=== PATIENT | male | born 1995 | race Caucasian/White ===

== ENCOUNTER 2017-08-05 13:17 | Emergency (ER) | payer BC ==
[2017-08-05 13:27] VITALS: BP 159/78; PULSE 51; RESP 16; TEMP 98.2; O2SAT 100
--- NOTE | 2017-08-05 13:40 | EDPHY ---
HPI/HX/ROS/PE/MDM Narrative: CHIEF COMPLAINT: Low back pain HPI: The patient is a 22-year-old male with history of known L4-L5 herniated disc and sciatica secondary to wrestling injury a few years ago. The patient states that earlier this week he had a coughing fit which caused acute onset of recurrence of pain in the right lower back with radiation down his right leg. He states this feels exactly the same as his prior sciatica. He denies fever, abdominal pain, numbness, incontinence, difficulty walking. He states he was seen at urgent care earlier this year for similar symptoms and received oral steroids and muscle relaxant which helped greatly. REVIEW OF SYSTEMS: Aside from elements discussed in the HPI, a comprehensive 10-point review of systems was reviewed and is negative. PMH: Includes herniated disc, no history of back surgery. SOCIAL HISTORY: Single. Student. PHYSICAL EXAM: General:Patient is alert, in no acute distress. Abdomen:The abdomen is nontender to palpation. There are no peritoneal signs. There are normal bowel sounds. Back: Normal to inspection. Mild tenderness to palpation of the right sciatic notch. No midline tenderness. Skin: Normal color. No rash. Warm and dry. Extremities: Normal appearance. Full range of motion. Neuro: Oriented x3. Normal motor function. Normal sensory function. MDM: This is a young healthy male with a known history of herniated disc who presents with acute low back strain symptoms that seem consistent with his prior history. There is no evidence for kidney stone, ruptured AAA or spinal cord emergency. The patient is comfortable with the plan to receive oral steroids and a muscle relaxant. I will give him a referral to Neurosurgery. Given young age, known history and no history of trauma, I do not think emergent imaging is indicated at this time. General Time Seen by Provider: 08/05/17 13:20 Initial Vital Signs: Initial Vital Signs Temperature (C) 36.8 C 08/05/17 13:21 Heart Rate 51 L 08/05/17 13:21 Respiratory Rate 16 08/05/17 13:21 Blood Pressure 159/78 H 08/05/17 13:21 O2 Sat (%) 100 08/05/17 13:21 O2 Delivery Mode Room Air Allergies/Adverse Reactions: No Known Allergies Allergy (Unverified 08/05/17 13:28) Home Medications: Medication Instructions Recorded Cyclobenzaprine [Flexeril] 10 mg PO TID #15 tab 08/05/17 Ibuprofen 08/05/17 methylPREDNISolone [Medrol Dose 1 each PO AD #1 ea 08/05/17 Mark Anthony] Departure - Departure Disposition: Home, Routine, Self-Care Clinical Impression: Low back pain Qualifiers: Chronicity: acute Back pain laterality: right Sciatica presence: with sciatica Sciatica laterality: sciatica of right side Qualified Code(s): M54.41 - Lumbago with sciatica, right side Condition: Good Instructions: Low Back Strain (ED) Additional Instructions: Followup with a sourcing specialist within one week. Return to the emergency department for severe pain, fever, numbness, difficulty walking, change in location or nature of pain or other concerns. Use ibuprofen and Tylenol as directed. Referrals: Justyn Joyner MD [Medical Doctor] - As per Instructions Prescriptions: Cyclobenzaprine [Flexeril] 10 mg PO TID #15 tab methylPREDNISolone [Medrol Dose Mark Anthony] 1 each PO AD #1 ea
== END 2017-08-05 13:45 | disposition home or self-care (01) ==
LOC: CED 13:17
DX: M54.41 Lumbago with sciatica, right side (principal)